=== PATIENT | female | born 1985 | race Caucasian/White ===

== ENCOUNTER 2021-02-04 19:20 | Emergency (ER) | payer OTHER ==
[~2021-02-04] VITALS: Ht 160 cm; Wt 121.6 kg
[2021-02-05] MEDS ORDERED: CLINDAMYCIN HC300 MG PO (01:54)
[2021-02-05] MEDS ORDERED: INTESTINEX680 M2 PO (01:54)
[2021-02-05] MEDS ORDERED: NAPROXEN500 MG PO (01:54)
== END 2021-02-05 02:43 | disposition home or self-care (01) ==
LOC: ER 19:20
DX: L02.416 Cutaneous abscess of left lower limb (principal); S80.862A Insect bite (nonvenomous), left lower leg, initial encounter; L03.116 Cellulitis of left lower limb; W57.XXXA Bitten or stung by nonvenomous insect and other nonvenomous arthropods, initial encounter; Y92.89 Other specified places as the place of occurrence of the external cause; Y93.89 Activity, other specified; Y99.8 Other external cause status